=== PATIENT | male | born 1960 | race Caucasian/White ===

== ENCOUNTER 2025-02-28 14:32 | Emergency (ER) | payer OTHER, SELFPAY ==
[2025-02-28 14:48] VITALS: BP 119/83; PULSE 93; RESP 18; TEMP 36.6; O2SAT 95; BMI 37.1
--- NOTE | 2025-02-28 18:50 | ED_ITS ---
HPI - Skin/Abscess/Foreign Bdy General Chief complaint: Skin/Abscess/Foreign Body Stated complaint: Mass on upper back Time Seen by Provider: 02/28/25 18:43 Source: patient Mode of arrival: Ambulatory History of Present Illness HPI narrative: 65-year-old gentleman history of left kidney cancer status post ablation 2023 presents with mass in his upper middle back that has been going on for at least a week that is red and painful. He denies fever, chills, bleeding, purulent drainage, or any history of MRSA, cellulitis, skin cancer or sebaceous cyst. He has not done anything for it nothing makes it better or worse. Other than what is stated 14 point review of system is negative Related Data Previous Rx's Medication Instructions Recorded sulfamethoxazole 800 1 tab PO BID #14 tabs 02/28/25 mg-trimethoprim 160 mg tablet (Bactrim DS) Allergies Allergy/AdvReac Type Severity Reaction Status Date / Time No Known Drug Allergies Allergy Verified 02/28/25 14:50 Review of Systems Review of Systems ROS Unobtainable: All systems reviewed & are unremarkable except as noted in HPI and below Patient History Social History Smoking Status: Never smoker Smoking Status: Never smoker Exam Narrative Exam Narrative: GENERAL: [65] year old patient appears stated age. Well-developed patient, in mild distress. HEAD: Atraumatic. Normocephalic. EYES: Pupils equal round and reactive. Extraocular motions intact. No scleral icterus. No injection or drainage. EXTREMITIES: No edema or joint tenderness. BACK: Nontender without deformity or crepitance. No flank tenderness. NEURO: AOx3. SKIN: Midline t1-2 area soft tissue swelling red blueberry size and warm with no fluctuance, streaking, bleeding or drainage but TTP Initial Vital Signs Initial Vital Signs: Vital Signs Temperature 98 F 02/28/25 14:48 Pulse Rate 93 H 02/28/25 14:48 Respiratory Rate 18 02/28/25 14:48 Blood Pressure 119/83 02/28/25 14:48 Pulse Oximetry 95 02/28/25 14:48 Oxygen Delivery Method Room Air 02/28/25 14:48 Course Vital Signs Vital signs: Vital Signs - 8 hr 02/28/25 14:48 Temperature 98 F Pulse Rate 93 H Respiratory Rate 18 Blood Pressure 119/83 Pulse Oximetry 95 Oxygen Delivery Method Room Air MDM - Skin/Abscess/Foreign Bdy MDM Narrative Medical decision making narrative: Vital signs, nursing triage note, medication list, previous ER visits, and all imaging reviewed. Patient given Bactrim here. Differential diagnosis includes cellulitis, abscess, MRSA, sebaceous cyst, lipoma, skin cancer. [facility] if no improvement in symptoms. Discharge Plan Departure Patient Disposition: Home Clinical Impression: Abscess of skin or subcutaneous tissue Instructions: DI for Skin Abscess Activity Restrictions/Additional Instructions: Return with new or worsening symptoms. Take your medicines as directed. [facility] if no improvement symptoms or to the ER. Prescriptions: New sulfamethoxazole-trimethoprim [Bactrim DS] 800-160 mg tablet 1 tab PO BID Qty: 14 0RF Referrals: Terrence Barbosa DO [Primary Care Provider] - Stand Alone Forms: Patient Portal/API/Survey
[2025-02-28] MEDS: TRIMETH/SULFA 160/800 (DS) TABLET 1 TAB PO (19:00)
[2025-02-28 19:03] VITALS: BP 136/82; PULSE 83; RESP 16; TEMP 36.6; O2SAT 98
== END 2025-02-28 19:08 | disposition home or self-care (01) ==
PROVIDERS: Emergency Provider Family Medicine; PCP Family Medicine
DX: L02.212 Cutaneous abscess of back [any part, except buttock and flank] (principal); Z85.528 Personal history of other malignant neoplasm of kidney
CPT/HCPCS: 99283

== ENCOUNTER 2025-03-03 11:58 | Emergency (ER) | payer OTHER, SELFPAY ==
[2025-03-03 12:04] VITALS: BP 163/83; PULSE 85; RESP 16; TEMP 36.6; O2SAT 97; BMI 31.1
--- NOTE | 2025-03-03 12:40 | ED.RECABL ---
HPI - Recheck/Abnormal Lab/Rx <Charlotte Francis PA-C - Last Filed: 03/03/25 14:15> General Chief Complaint: Recheck/Abnormal Lab/Rx Stated Complaint: Returning; Back Mass pushing on nerve, arm numb Time Seen by Provider: 03/03/25 12:40 Source: patient Mode of arrival: Ambulatory History of Present Illness HPI narrative: 65-year-old [place] returns to the emergency department for upper back discomfort and swelling. He was seen here on February 28, [address] Sauceda, diagnosed with a simple abscess and started on a 7 day course of Bactrim DS. He has been doing warm compresses and taking the medication but reports no significant improvement. He is denying any fever, he normally seeks medical care at the [place]. History is significant for left kidney cancer status post ablation in 2023, no history of MRSA, he does endorse sensitive skin and saw [facility] and [place] years ago but is denying any skin cancer. He reports a having a sebaceous cyst removed and drained 20 years ago. He also does regular tanning brown treatments to prevent sun burn due to his sensitivity. His concern today is increased pain in the upper back which is now causing pain and numbness in his right arm at the level of the elbow to the fingers and some neck stiffness. He reports unable to get comfortable during sleeping unable to lay on his back. He is denying any fever, nausea, vomiting, headache, or any other complaints. All other systems are reviewed and are negative. Apparently in the last day he has been doubling up on the prescription Bactrim which he believes seemed to help. He does endorse using warm compresses and shower and cleansing regularly. Related Data Previous Rx's Medication Instructions Recorded sulfamethoxazole 800 1 tab PO BID #14 tabs 02/28/25 mg-trimethoprim 160 mg tablet (Bactrim DS) clindamycin HCl 300 mg capsule 300 mg PO TID #21 caps 03/03/25 Allergies Allergy/AdvReac Type Severity Reaction Status Date / Time No Known Drug Allergies Allergy Verified 03/03/25 12:04 Review of Systems <Charlotte Francis PA-C - Last Filed: 03/03/25 14:15> Review of Systems Narrative: All other systems reviewed and are negative. Exam <Charlotte Francis PA-C - Last Filed: 03/03/25 14:15> Initial Vital Signs Initial Vital Signs: Vital Signs Temperature 97.9 F 03/03/25 12:04 Pulse Rate 85 03/03/25 12:04 Respiratory Rate 16 03/03/25 12:04 Blood Pressure 163/83 H 03/03/25 12:04 Pulse Oximetry 97 03/03/25 12:04 Oxygen Delivery Method Room Air 03/03/25 12:04 Vital signs reviewed and are normal except for elevated systolic today. Const General: cooperative, healthy appearing, comfortable, well developed, well groomed and No acute distress [facility] Head: normal to inspection, normocephalic and atraumatic Nose: external nose normal Mouth: oral mucosae normal, lip normal and tongue normal Eyes General: Yes appearance normal, both eyes and all related structures Neck Neck: normal visual inspection, full ROM, no meningeal signs, trachea midline and supple Chest Chest: normal inspection of the chest Resp Effort & Inspection: normal respiratory effort and able to speak in complete sentences Auscultation: clear to auscultation bilaterally, no rales, no rhonchi and no wheezes Cardio Rate: regular rate Rhythm: regular rhythm Back/Spine/Pelvis Back: back tenderness, No CVA tenderness, No ecchymosis and No erythema Other: At the level of T1-T2 just right of the midline there has an area of redness in indurated firm tissue measuring approximately 2 cm x 1 cm, there is no fluctuance, there is no central pustule, it was warm not hot to the touch. Skin is thickened, the remaining skin on his back is consistent with sebaceous hyperplasia several small white papules are noted, some thickened skin throughout, slightly reddened but he just came from the tanning brown, it does britton, nontender, general skin is warm. Full active range of motion to the neck and back, no meningeal signs, no focal bony midline tenderness. Skin General: elasticity normal, turgor normal, No crusts and No dry skin Other: As noted in the back exam regarding the detailed lesion in his upper back. Neuro General: patient alert, patient awake and patient oriented x3 Other: No focal neurologic deficits, equal health services administrator strength, full active range of motion to his upper extremities and neck. Extrem General: normal to inspection, full ROM and capillary refill normal Other: Equal health services administrator strength, no focal deficits, he endorses some discomfort along the right elbow forearm but sensory is intact, pinch mechanism intact, ulnar radial and medial nerves are intact. Strength grossly intact. No adenopathy, no axillary adenopathy or swelling. Equal radial pulses ulnar pulses are intact. No epitrochlear nodes. <Ashlee Mejia DO - Last Filed: 03/04/25 18:12> Initial Vital Signs Initial Vital Signs: Vital Signs Temperature 97.9 F 03/03/25 12:04 Pulse Rate 85 03/03/25 12:04 Respiratory Rate 16 03/03/25 12:04 Blood Pressure 163/83 H 03/03/25 12:04 Pulse Oximetry 97 03/03/25 12:04 Oxygen Delivery Method Room Air 03/03/25 12:04 Procedures <Charlotte Francis PA-C - Last Filed: 03/03/25 14:15> Abscess I/D I&D #1: Time of procedure: 13:17 Site: back (upper T1-T2, between scapulae) Side (if applicable): right (of midline slightly) Sedation/analgesia: none Local Anesthetic: lidocaine 1% Amount of anesthesia used (mL): 2 Technique: incised with #11 blade (7mm length) Irrigation: Yes (Saline, 60mL syringe pressure irrigation, 200mL, clear water return) Packing used?: plain (1 cm quarter inch) Course <SIMEON Dawson Last Filed: 03/03/25 14:15> Orders Ordered: Discontinued Medications Lidocaine HCl (Lidocaine 1% 20 Ml) 20 ml INJ INTRA-OP ONE Stop: 03/03/25 13:02 Last Admin: 03/03/25 13:28 Dose: 20 ml Documented By: SB Reevaluation(s) Reevaluation #1: He reports significant improvement to his elbow forearm discomfort, 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 Patient tolerated procedure quite well. No adverse reactions or complications. Vital Signs Vital signs: Vital Signs - 8 hr 03/03/25 12:04 Temperature 97.9 F Pulse Rate 85 Respiratory Rate 16 Blood Pressure 163/83 H Pulse Oximetry 97 Oxygen Delivery Method Room Air <Ashlee Mejia DO - Last Filed: 03/04/25 18:12> Orders Ordered: Discontinued Medications Lidocaine HCl (Lidocaine 1% 20 Ml) 20 ml INJ INTRA-OP ONE Stop: 03/03/25 13:02 Last Admin: 03/03/25 13:28 Dose: 20 ml Documented By: KOBY Vital Signs Vital signs: Vital Signs - 8 hr 03/03/25 12:04 Temperature 97.9 F Pulse Rate 85 Respiratory Rate 16 Blood Pressure 163/83 H Pulse Oximetry 97 Oxygen Delivery Method Room Air MDM - Recheck/Abnormal Lab/Rx <Charlotte Francis PA-C - Last Filed: 03/03/25 14:15> [facility] Narrative Medical decision making narrative: After discussing the risks of incision and drainage patient wished to proceed, sebaceous debris as well as remnants of a cyst sac were seen following incision and drainage. There was no pus, bleeding was controlled with plain packing and direct pressure. Overall he feels significantly better. Based on his history and clinical findings today is consistent with a sebaceous cyst that was inflamed, not infected. No culture was performed. I have asked him to stop his Bactrim, at this point I do not believe an antimicrobial is warranted however I have called in clindamycin if he does have any increased redness, heat, fever, swelling and of course seek medical attention immediately. He states that his insurance does not cover our walk-in clinic or urgent care he is encouraged to return here in 48 hours or see [facility]. Discussed the possibility of recurrence of the cyst as the entire sac was not seen but it was disrupted and hopefully it will not reaccumulate. I have asked him to leave the current dressing on for 24 hours, in the morning take a shower wet the dressing and remove he should see the packing as well that should be removed and do soap and water cleanse and irrigation daily to avoid that incision site from healing prematurely as debris can reaccumulate. Red flag warning signs reviewed, he can continue to do warm compresses, Tylenol or ibuprofen as needed for pain. Discharge Plan Departure Patient Disposition: Home Clinical Impression: Sebaceous cyst Instructions: DI for Epidermal Cyst Activity Restrictions/Additional Instructions: Please stop the Bactrim prescription medication. I have called in a new medication called clindamycin that you may start however I believe this was an inflamed sebaceous cyst and following the incision and exploration I managed to remove the skin debris as well as part of a cyst sac. It could recur, please do follow up with your primary care or outboard motor assembler for definitive removal. Please keep the current dressing on for 24 hours, in the morning take a shower allow the dressing to get wet for easy removal, you should see a small piece of packing no greater than 1 in this should be removed as well. Do soap and water cleanse, warm shower daily, keep it covered if it was still draining, monitor for signs of infection which includes increased redness, pain, swelling, odor, if it heals and closes it could reaccumulate so try to keep that disrupted for the next 3-4 days or so. Please do not hesitate to follow up with the emergency department in 48 hours or sooner if any concerns. Do not do any tanning brown, stay hydrated, and I highly recommend a dermatology evaluation do to your age and sun exposure and sensitivity as well as previous sebaceous cyst. Prescriptions: New clindamycin HCl 300 mg capsule 300 mg PO TID Qty: 21 0RF No Action sulfamethoxazole-trimethoprim [Bactrim DS] 800-160 mg tablet 1 tab PO BID Qty: 14 0RF Referrals: Terrence Barbosa DO [Primary Care Provider] - Stand Alone Forms: Patient Portal/API/Survey ED Sign-out <Ashlee Mejia DO - Last Filed: 03/04/25 18:12> Cosign ED Attending Jessicaature Attestation: I was available for consultation.
[2025-03-03] MEDS: LIDOCAINE 1% 20 ML INJ (13:28)
[2025-03-03 14:05] VITALS: BP 131/83; PULSE 73; RESP 18; TEMP 36.9; O2SAT 96
== END 2025-03-03 14:05 | disposition home or self-care (01) ==
PROVIDERS: Emergency Provider Physician Assistant Medical; PCP Family Medicine
DX: R20.0 Anesthesia of skin (principal); L72.3 Sebaceous cyst; Z85.528 Personal history of other malignant neoplasm of kidney
CPT/HCPCS: 10060; 99283